=== PATIENT | female | born 1960 | race Caucasian/White ===

== ENCOUNTER → 2021-09-06 | Day surgery (SDC) | payer MEDICARE, OTHER ==
[~2021-09-06] VITALS: Ht 162.6 cm; Wt 100.0 kg
[~2021-09-06] MED LIST: ALPR0.5T8 PO; ARIP15TA27 PO; ATOR10TA84 PO; BUPR100SR PO; LOSA-382 PO; METO50 PO; SODIUM CHLORIDE 0.9% 1,000 ML IV ONE; VENL-193 PO; VENL-53 PO
[2021-09-06 13:58] LABS: COVID AG,FIA SOURCE NASOPHARYNGEAL
== END | disposition home or self-care (01) ==
LOC: SURGERY 13:53
PROVIDERS: ATTEND Internal Medicine Gastroenterology
DX: K74.60 Unspecified cirrhosis of liver (principal); Z53.8 Procedure and treatment not carried out for other reasons; Z98.890 Other specified postprocedural states; F31.9 Bipolar disorder, unspecified; I10 Essential (primary) hypertension; E78.5 Hyperlipidemia, unspecified; E66.9 Obesity, unspecified; Z79.899 Other long term (current) drug therapy
CPT/HCPCS: 87426; C9803

== ENCOUNTER 2021-10-05 09:45 | Day surgery (SDC) | payer MEDICARE, OTHER ==
[~2021-10-05] VITALS: Ht 162.6 cm; Wt 95.5 kg
[~2021-10-05 09:45] MED LIST changes: +SODIUM CHLORIDE 0.9% 1,000 ML ONE; -VENL-193 PO
[2021-10-05] MEDS ORDERED: LIDOCAINE/PF 2% 5 ML SYRINGE IVP ONE (09:46)
[2021-10-05] MEDS ORDERED: PROPOFOL 1% 20 ML VIAL IVP ONE (09:46)
[2021-10-05 10:08] LABS: COVID AG,FIA SOURCE NASAL SWAB
== END 2021-10-05 13:30 | disposition home or self-care (01) ==
LOC: SURGERY 09:45
PROVIDERS: ATTEND Internal Medicine Gastroenterology
DX: K29.50 Unspecified chronic gastritis without bleeding (principal); K20.90 Esophagitis, unspecified without bleeding; I10 Essential (primary) hypertension; K74.60 Unspecified cirrhosis of liver; Z79.899 Other long term (current) drug therapy; Z98.890 Other specified postprocedural states
CPT/HCPCS: 43239; 87426; C1769; C9803; J2704; J3490; J7030; 88305; 88312; 88313